=== PATIENT | female | born 1995 | race Caucasian/White ===

== ENCOUNTER 2023-08-29 01:59 | Day surgery (SDC) | payer OTHER ==
[2023-08-29] MEDS ORDERED: Lactated Ringer's 1,000 ML IV SCH ×2 (05:30)
[2023-08-29] MEDS ORDERED: Calcium Carbonate 500 MG ChewTAB PO SCH (05:30)
[2023-08-29] MEDS ORDERED: hydrALAZINE 20 MG/ML VIAL SLOW IVP PRN (06:16)
[2023-08-29] MEDS ORDERED: Ondansetron PF 4 MG/2 ML Vial IVP SCH (06:48)
[2023-08-29] MEDS ORDERED: Ondansetron PF 4 MG/2 ML Vial ONE (07:18)
[2023-08-29] MEDS ORDERED: Promethazine HCl 25 MG/ML VIAL IM SCH (10:50)
[2023-08-29] MEDS ORDERED: Morphine 10 MG/ML VIAL IM SCH (10:50)
[2023-08-29 11:34] LABS: HBsAg Index 0.18 S/CO (0-0.99); Hep B Surf Ag - L&D Non-Reactive S/CO (NonReactive)
[2023-08-29 11:41] LABS: Hematocrit 37.7 % (34.9-44.5); Hemoglobin 13.1 g/dL (12.0-15.5)
[2023-08-29 12:02] LABS: Syphilis Antibody Nonreactive (Nonreactive); Syphilis Antibody Index 0.09 S/CO (<1.00 Non-Reactive)
[2023-08-29 13:30] VITALS: BMI 43.4
== END 2023-08-29 11:40 | disposition home or self-care (01) ==
LOC: CSHLD/OP 01:59
PROVIDERS: ATTEND Student in an Organized Health Care Education/Training Program
DX: O47.1 False labor at or after 37 completed weeks of gestation (principal); O21.9 Vomiting of pregnancy, unspecified; O00.01 Abdominal pregnancy with intrauterine pregnancy; Z03.71 Encounter for suspected problem with amniotic cavity and membrane ruled out; Z88.1 Allergy status to other antibiotic agents; Z98.890 Other specified postprocedural states; Z3A.40 40 weeks gestation of pregnancy
CPT/HCPCS: 85014; 85018; 86780; 86850; 86900; 86901; 87340; 99285; J2270; J2405; J2550

== ENCOUNTER 2023-08-30 00:08 | Inpatient (IN) | payer OTHER ==
[2023-08-30] MEDS ORDERED: Ondansetron PF 4 MG/2 ML Vial IVP PRN ×2 (02:19→14:29)
[2023-08-30] MEDS ORDERED: Promethazine HCl 25 MG/ML VIAL IM PRN ×2 (02:20→04:23)
[2023-08-30] MEDS ORDERED: hydrALAZINE 20 MG/ML VIAL SLOW IVP PRN ×2 (02:20→14:29)
[2023-08-30] MEDS ORDERED: Lactated Ringer's 1,000 ML IV SCH (02:30)
[2023-08-30 02:34] LABS: Hematocrit 36.6 % (34.9-44.5); Hemoglobin 13.3 g/dL (12.0-15.5); Mean Corpuscular HGB CONC 36.3 g/dL (32.0-36.0); Mean Corpuscular Hemoglobin 33.3 pg (27.0-33.0); Mean Corpuscular Volume 91.5 fL (81.6-98.3); Mean Platelet Volume 10.7 fL (7.4-10.4); Platelet Count 234 10x3/uL (150-450); RBC Distribution Width 13.8 % (11.5-14.5); White Blood Cell (WBC) Count 15.6 10x3/uL (3.5-10.5)
[2023-08-30 02:57] LABS: Syphilis Antibody Nonreactive (Nonreactive)
[2023-08-30 02:58] LABS: HBsAg Index 0.17 S/CO (0-0.99); Hep B Surf Ag - L&D Non-Reactive S/CO (NonReactive)
[2023-08-30] MEDS: fentaNYL 50 mcg/mL 1 mL Vial SLOW IVP PRN (03:20)
[2023-08-30] MEDS: Penicillin G Potassium 5 MILL.UNITS in Sodium Chloride 0.9% 100 ML IVPB SCH (03:27)
[2023-08-30] MEDS ORDERED: ePHEDrine Sulfate 50 MG/10 ML VIAL SLOW IVP PRN (04:23)
[2023-08-30] MEDS ORDERED: Naloxone HCl 0.4 mg/ml Vial IVP PRN ×2 (04:23)
[2023-08-30] MEDS ORDERED: Lactated Ringer's 500 ML IV PRN (04:23)
[2023-08-30] MEDS ORDERED: Moisturizing Cream (Eucerin) 113 GM JAR TOP PRN (04:23)
[2023-08-30] MEDS ORDERED: diphenhydrAMINE 50 MG/ML VIAL IVP PRN (04:23)
[2023-08-30] MEDS ORDERED: Communication Order-Pharmacy FS SCH (04:30)
[2023-08-30 06:02] VITALS: BMI 43.4
[2023-08-30] MEDS: Ondansetron PF 4 MG/2 ML Vial IVP PRN (07:50)
[2023-08-30] MEDS: Penicillin G 2.5 MILL.units 2.5 MILL.UNITS in Premix 1 BAG IVPB SCH (07:50)
[2023-08-30] MEDS ORDERED: Docusate 100 MG CAP PO SCH ×2 (09:00→21:00)
[2023-08-30] MEDS: Oxytocin 30 units/NS 500 ML 500 ML ONE (11:27)
[2023-08-30] MEDS: fentaNYL 2 mcg/Ropivacaine 0.2% Epidural 100 ML CADD EPIDURAL SCH (12:28)
[2023-08-30] MEDS ORDERED: Misoprostol 200 MCG TAB VAG PRN (14:29)
[2023-08-30] MEDS ORDERED: Milk Of Magnesia 30 ML UDCUP PO PRN (14:29)
[2023-08-30] MEDS ORDERED: Lanolin Ointment 7 GM TUBE TOP PRN (14:29)
[2023-08-30] MEDS ORDERED: Methylergonovine 0.2 MG/ML VIAL IM PRN (14:29)
[2023-08-30] MEDS ORDERED: Bisacodyl 10 MG SUPP PR PRN (14:29)
[2023-08-30] MEDS ORDERED: Oxytocin 30 units/NS 500 ML 500 ML IV SCH (14:30)
[2023-08-30] MEDS: fentaNYL/Ropivacaine Epidural 100 ML ONE (18:01)
[2023-08-30] MEDS: Boostrix 0.5 ML (Tdap) VIAL (>/=7 yrs of age) IM ONE (18:01)
[2023-08-30] MEDS: Ferrous Sulfate 325 MG TAB PO SCH (18:02)
[2023-08-30] MEDS: Ibuprofen 800 MG TAB PO SCH ×2 (19:19→21:25)
[2023-08-30] MEDS: Benzocaine-Menthol 82.5 ML CAN TOP PRN (21:24)
[2023-08-31] MEDS: Prenatal Vitamin 1 TAB PO SCH (09:32)
[2023-08-31] MEDS: Ondansetron ODT 4 MG TAB PO PRN (16:43)
[2023-09-01] MEDS ORDERED: Bupivacaine/Epinephrine 0.25% 30 ML VIAL ONE (08:00)
[2023-09-01 08:03] VITALS: BP 112/60; TEMP 98.5
[2023-09-01] MEDS: Acetaminophen 325 MG TAB PO PRN (08:55)
== END 2023-09-01 13:30 | disposition home or self-care (01) | DRG 807 ==
LOC: CSHLD/OP 00:08 → CSHLD 02:07 → CSHPP 17:44
PROVIDERS: ADMIT Student in an Organized Health Care Education/Training Program; ATTEND Student in an Organized Health Care Education/Training Program
PROC: 10E0XZZ Delivery of Products of Conception, External Approach (ICD-10-PCS; principal; 2023-08-30)
PROC: 0W8NXZZ Division of Female Perineum, External Approach (ICD-10-PCS; 2023-08-30)
DX: O76 Abnormality in fetal heart rate and rhythm complicating labor and delivery (principal); Z37.0 Single live birth; O48.0 Post-term pregnancy; Z3A.40 40 weeks gestation of pregnancy; O70.1 Second degree perineal laceration during delivery; Z88.1 Allergy status to other antibiotic agents; Z98.890 Other specified postprocedural states
CPT/HCPCS: 51702; 85014; 85018; 85027; 86780; 86850; 86900; 86901; 87340; 99285; J2270; J2405; J2540; J2550; J2590; J3010; J3490; Q0162

== ENCOUNTER 2024-12-03 10:18 | Outpatient (CLI) | payer OTHER | END 2024-12-03 10:19 | disposition home or self-care (01) | LOC: CSHULT 10:18 | PROVIDERS: ATTEND Family Medicine | DX: Z34.82 Encounter for supervision of other normal pregnancy, second trimester (principal); Z3A.20 20 weeks gestation of pregnancy | CPT/HCPCS: 76805 ==